=== PATIENT | male | born 1975 | race Caucasian/White ===

== ENCOUNTER 2019-01-03 18:51 | Emergency (ER) | payer OTHER ==
[2019-01-03 19:06] VITALS: BP 140/90
[2019-01-03] MEDS ORDERED: Aspirin 81 mg CHEW TAB* 81 MG TAB.CHEW PO ONE (19:36)
--- NOTE | 2019-01-03 19:51 | UC ---
Cardiac HPI - HPI Summary HPI Summary: Patient presents to urgent care reporting 3 days of intermittent substernal chest pain that radiates to his back. Patient denies nausea or vomiting. No diaphoresis. Patient states sometimes he feels a little short of breath with it. Patient has never had anything similar. Patient denies lightheadedness. Not reproducible. Does not wake him up with a result sleeping IS anxious. Patient states he took aspirin but did not help. No aspirin today. Patient denies any trauma, fever, chills, rash. Patient states he just feels heavy in his chest. Patient also reports he's been checking his blood pressure usually runs around 140 systolic last week he's been in the 160s over 110. Patient states this got him more concerned. Patient grandfather had cardiac disease in his 70s. Patient does not have diabetes or high cholesterol. Patient is not on medication for his blood pressure. Patient does not smoke. Patient does drink 2-3 drinks per day but has not since . Patient is not taking any [id number] medications. Patient not taking any decongestants. Or herbal remedies. Patient states he had a cardiac workup including a stress test approximately 18 months ago. Patient states he is just very concerned this could have been a heart attack and wants to get checked. - History of Current Complaint Chief Complaint: UCGeneralIllness Stated Complaint: HIGH BLOOD PRESSURE Time Seen by Provider: 01/03/19 19:09 Hx Obtained From: Patient Initial Severity: Moderate Current Severity: None Pain Intensity: 0 - Allergy/Home Medications Allergies/Adverse Reactions: Allergies Allergy/AdvReac Type Severity Reaction Status Date / Time No Known Allergies Allergy Verified 01/03/19 19:01 Home Medications: Home Medications NK [No Home Medications Reported] 01/03/19 [History Confirmed 01/03/19] PMH/Surg Hx/FS Hx/Imm Hx Previously Healthy: Yes Cardiovascular History: Hypertension - Surgical History Surgical History: Yes Surgery Procedure, Year, and Place: left elbow surgery - Family History Known Family History: Positive: Hypertension, Other - CANCER, Non-Contributory - Social History Lives: With Family Alcohol Use: Daily Alcohol Amount: 4 drinks x week Substance Use Type: None Smoking Status (MU): Former Smoker Type: Cigarettes Amount Used/How Often: quit 2 months ago, smoked on and off ~10 years - Immunization History Most Recent Tetanus Shot: 2011 Review of Systems All Other Systems Reviewed And Are Negative: Yes Constitutional: Positive: Negative Skin: Positive: Negative Eyes: Positive: Negative ENT: Positive: Negative Respiratory: Positive: Shortness Of Breath Cardiovascular: Positive: Chest Pain Is Patient Immunocompromised?: No Physical Exam - Summary Physical Exam Summary: Vital Signs Reviewed: Yes A+Ox3, no distress Eyes: Conjunctiva Clear, POORNIMA. EOM intact and full ENT: Hearing grossly normal TM x 2 clear, mmoist, uvula midline, no exudate, no erythema Neck: Positive: Supple Respiratory: Positive: No respiratory distress, No accessory muscle use + CTA throughout no w/r Cardiovascular: RRR nl s1, s2 no m/r CBT <2 sec no chest wall pain, not reproduced abd soft + BS nt/nd no guarding, no distension Musculoskeletal Exam: HERRING x 4 without difficulty Strength Intact, ROM Intact Neurological: Positive: Alert, + sensation throughout Psychological: Positive: Normal Response To Family Skin: Positive: no rash, no ecchymosis Triage Information Reviewed: Yes Vital Signs: Initial Vital Signs Temp 99 F 01/03/19 19:01 Pulse 80 01/03/19 19:01 Resp 16 01/03/19 19:01 BP 140/90 01/03/19 19:01 Pulse Ox 97 01/03/19 19:01 Diagnostics - EKG Cardiac Rate: NL Cardiac Rhythm: Sinus: Normal Ectopy: None ST Segment: Normal - Assessment/Plan Course Of Treatment: Patient presents to urgent care reporting 3 days of intermittent chest heaviness and discomfort increased his back. Patient states mildly short of breath at times with this. Patient also states she's been checking his blood pressure was markedly elevated at home. Patient concerned that this is heart. Vital signs reveal a mildly elevated blood pressure. EKG does not show any acute events. Pain isn't reproducible on exam. Discussed with patient cardiac disease. Recommend patient to the emergency room for further evaluation treatment. Patient agreement. Patient given 4 aspirin [address] to drive himself to [facility] for his choice. I did speak to Mr. Kulwinder Wang in the [facility] ED who graciously accepted reports patient. - Clinical Impression Provider Diagnosis: Chest pain Discharge - Sign-Out/Discharge Documenting (check all that apply): Patient Departure All imaging exams completed and their final reports reviewed: No Studies - Discharge Plan Condition: Stable Disposition: HOME-RECOMMEND TO ED Patient Education Materials: Chest Pain (ED) Referrals: Tristan Arias MD [Primary Care Provider] - Additional Instructions: The doctor that evaluated you today thinks that you need additional testing that can be completed the emergency department. It is recommended that you go directly to emergency department for further evaluation. This evaluation may include blood work or imaging. This testing will be directed and decided by the provider that evaluate you at the emergency department. If pain becomes worse, you feel lightheaded, you have uncontrolled vomiting, or you have any other concerns while you are being driven to emergency department as recommended to pullover and contact 911. - Billing Disposition and Condition Condition: STABLE Disposition: Home-Recommend to ED
== END 2019-01-03 19:42 | disposition home health service (06) ==
LOC: UCCORT 18:51
DX: R07.89 Other chest pain (principal); I10 Essential (primary) hypertension; Z87.891 Personal history of nicotine dependence
CPT/HCPCS: 93005; 99212; A9270-GY; G0463